=== PATIENT | female | born 1965 | race Caucasian/White ===

== ENCOUNTER 2021-01-18 12:57 | Emergency (ER) | payer BC, OTHER ==
[~2021-01-18] VITALS: Ht 154.9 cm; Wt 67.0 kg
[2021-01-18 14:54] LABS: BASOPHILS % (AUTO) 1 % (0-1); EOSINOPHILS % (AUTO) 1 % (1-7); LYMPHOCYTES % (AUTO) 35 % (22-44); MEAN CORPUSCULAR HGB CONC 33.7 g/dL (32.4-35.8); MEAN PLATELET VOLUME 7.5 fL (7.4-10.4); MONOCYTES % (AUTO) 5 % (2-9); NEUTROPHILS % (AUTO) 58 % (42-75); PLATELET COUNT 357 x10^3/uL (130-400); RED BLOOD COUNT 4.87 x10^6/uL (3.82-5.3); RED CELL DISTRIBUTION WIDTH 13.4 % (9.6-15.2)
[2021-01-18 15:05] LABS: ALBUMIN 3.9 g/dL (3.4-5.0); ANION GAP 6 mmol/L (5-15); CHLORIDE 102 mmol/L (98-107)
[2021-01-18 15:09] LABS: ALANINE AMINOTRANSFERASE 21 U/L (12-78); ALKALINE PHOSPHATASE 99 U/L (45-117); BILIRUBIN,TOTAL 0.4 mg/dL (0.2-1.0); CREATININE 0.55 mg/dL (0.55-1.02); TOTAL PROTEIN 7.2 g/dL (6.4-8.2)
--- NOTE | 2021-01-18 15:57 | NUR ---
TO ROOM FROM LOBBY.
--- NOTE | 2021-01-18 16:37 | NUR ---
PT AMBULATED TO BATHROOM W STEADY GAIT, NO TREMORS NOTICED
--- NOTE | 2021-01-18 17:00 | NUR ---
SEEN BY PA, PT IN [facility] DISCUSSING POC
--- NOTE | 2021-01-18 19:09 | NUR ---
REPORT RECEIVED, POC DISCUSSED, CARE ASSUMED. PT TO BE DC'D, WAITING FOR DC INSTRUCTIONS.
--- NOTE | 2021-01-18 19:34 | NUR ---
PT TO HAVE EKG BEFORE DC.
[2021-01-18 20:06] VITALS: BP 133/76
== END 2021-01-18 20:08 | disposition home or self-care (01) ==
LOC: ED 20:00
DX: R53.1 Weakness (principal); R25.1 Tremor, unspecified; R94.31 Abnormal electrocardiogram [ECG] [EKG]
CPT/HCPCS: 36415; 71045; 80053; 85025; 93005; 99285

== ENCOUNTER 2021-02-08 12:32 | Outpatient (CLI) | payer OTHER ==
[2021-02-08] MEDS ORDERED: GADOTERATE 10 MMOL/20 ML VIAL ONE (17:58)
== END 2021-02-08 23:59 | disposition home or self-care (01) ==
LOC: RAD 12:32
PROVIDERS: ATTEND Nurse Practitioner Family
DX: C64.2 Malignant neoplasm of left kidney, except renal pelvis (principal); K76.89 Other specified diseases of liver; N28.1 Cyst of kidney, acquired
CPT/HCPCS: 74183; A9575